=== PATIENT | female | born 1990 | race African-American/Black ===

== ENCOUNTER 2017-11-02 12:17 | Emergency (ER) | payer SELFPAY ==
[~2017-11-02] VITALS: Ht 154.9 cm; Wt 107.6 kg
[~2017-11-02 12:17] MED LIST: BACT800T5 PO; IBUP600T26 PO; PROP80CA PO; TYLE3 PO
[2017-11-02 12:22] VITALS: BP 144/66; PULSE 89; RESP 16; TEMP 99.5; O2SAT 100
--- NOTE | 2017-11-02 13:09 | PD ---
HPI Chief Complaint: Related Problem Time Seen by Provider: 13:02 Travel History International Travel<30 days: No Contact w/Intl Traveler<30days: No Traveled to known affect area: No History of Present Illness HPI 27yo F who is [id number] per LMP of 09/12/17 presents to the ED with c/o vaginal bleeding for 3 days. Said she called her OB Dr. Lucero and had outpatient bHCG taken yesterday and it was 434. Also with some left lower back pain today. Denies any fever, IVDA, fall, focal weakness or numbness. Denies any chest pain, sob, abdominal pain. +Nausea and vomiting. PFSH Past Medical History Anemia: Yes Depression: Yes Diminished Hearing: No Hypertension: Yes Medical other: Yes (PLANTAR FACITIS) Migraines: Yes ?: LMP: 09/12/17 : 1 Para: 1 Past Surgical History Oral Surgery: Yes (wisdoom teeth extraction) Other Surgery: Yes Family History Family Hypercholesterolemia: Yes (PATERNAL GRANDMOTHER) Social History Alcohol Use: Yes (2-3X WEEK) Tobacco Use: No Substance Use: No Allergies-Medications (Allergen,Severity, Reaction): Uncoded Allergies: TRICONAZOLA (Allergy, Severe, Hives, 05/12/14) Reported Meds & Prescriptions Reported Meds & Active Scripts Active No Active Prescriptions or Reported Medications Review of Systems Except as stated in HPI: all other systems reviewed are Neg Physical Exam Narrative GENERAL: 27yo F not in distress. SKIN: Focused skin assessment warm/dry. HEAD: Atraumatic. Normocephalic. CARDIOVASCULAR: Regular rate and rhythm. No murmur appreciated. RESPIRATORY: No accessory muscle use. Clear to auscultation. Breath sounds equal bilaterally. GASTROINTESTINAL: Abdomen soft, non-tender, nondistended. No rebound tenderness or guarding. PELVIC: +Small amount of blood. Cervix is open finger tip. No CMT or adnexal tenderness bilaterally. MUSCULOSKELETAL: No obvious deformities. No clubbing. No cyanosis. No edema. NEUROLOGICAL: Awake and alert. No obvious cranial nerve deficits. Motor grossly within normal limits. Normal speech. PSYCHIATRIC: Appropriate mood and affect; insight and judgment normal. Data Data Last Documented VS Vital Signs Date Time Temp Pulse Resp B/P (MAP) Pulse Ox O2 Delivery O2 Flow Rate FiO2 11/02/17 12:22 99.5 89 16 144/66 (92) 100 Orders Orders Complete Blood Count With Diff (11/02/17 13:05) Basic Metabolic Panel (Bmp) (11/02/17 13:05) Prothrombin Time / Inr (Pt) (11/02/17 13:05) Act Partial Throm Time (Ptt) (11/02/17 13:05) Beta Hcg (Quant/Titer) (11/02/17 13:05) Urinalysis - C+S If Indicated (11/02/17 13:05) Us Pelvis (Ques Pr/Ect)W Trans (11/02/17 ) Ed Urine Pregnancytest Poc (11/02/17 13:39) Gc And Chlamydia Pcr (11/02/17 14:19) Wet Prep Profile (11/02/17 14:19) Labs Laboratory Tests Test 11/02/17 13:20 11/02/17 13:40 11/02/17 14:20 White Blood Count 4.7 TH/MM3 Red Blood Count 4.92 MIL/MM3 Hemoglobin 11.1 GM/DL Hematocrit 34.0 % Mean Corpuscular Volume 69.1 FL Mean Corpuscular Hemoglobin 22.5 PG Mean Corpuscular Hemoglobin Concent 32.5 % Red Cell Distribution Width 14.0 % Platelet Count 225 TH/MM3 Mean Platelet Volume 8.1 FL Neutrophils (%) (Auto) 61.6 % Lymphocytes (%) (Auto) 26.1 % Monocytes (%) (Auto) 8.5 % Eosinophils (%) (Auto) 1.2 % Basophils (%) (Auto) 2.6 % Neutrophils # (Auto) 2.9 TH/MM3 Lymphocytes # (Auto) 1.2 TH/MM3 Monocytes # (Auto) 0.4 TH/MM3 Eosinophils # (Auto) 0.1 TH/MM3 Basophils # (Auto) 0.1 TH/MM3 CBC Comment AUTO DIFF Differential Comment AUTO DIFF CONFIRMED Ovalocytes 2+ Keratocytes OCC Urine Collection Type [id number] Urine Color YELLOW Urine Turbidity CLEAR Urine pH 6.0 Urine Specific [place] LESS/EQUAL 1.005 Urine Protein NEG mg/dL Urine Glucose (UA) NEG mg/dL Urine Ketones NEG mg/dL Urine Occult Blood TRACE Urine Nitrite NEG Urine Bilirubin NEG Urine Urobilinogen 0.2 MG/DL Urine Leukocyte Esterase NEG Urine Squamous Epithelial Cells 0-5 /hpf Urine Bacteria RARE /hpf Microscopic Urinalysis Comment CULT NOT INDICATED Blood Urea Nitrogen 9 MG/DL Creatinine 0.74 MG/DL Random Glucose 84 MG/DL Calcium Level 8.8 MG/DL Sodium Level 141 MEQ/L Potassium Level 4.1 MEQ/L Chloride Level 111 MEQ/L Carbon Dioxide Level 25.3 MEQ/L Anion Gap 5 MEQ/L Estimat Glomerular Filtration Rate 113 ML/MIN Human Chorionic Gonadotropin, Quant 238 MIU/ML Prothrombin Time 10.2 SEC Prothromb Time International Ratio 1.0 RATIO Activated Partial Thromboplast Time 27.1 SEC Clue Cells (Wet Prep) NONE SEEN Vaginal Trichomonas (Wet Prep) NONE SEEN Vaginal Yeast (Wet Prep) NONE SEEN MDM Medical Decision Making Medical Screen Exam Complete: Yes Emergency Medical Condition: Yes Differential Diagnosis Threatened vs. ectopic vs. UTI Narrative Course 27yo F here with vaginal bleeding for 3 days. Labs reviewed, no leukocytosis. H/H 11.1/34.0. bHCG decreasing to 238 today. UA showed rare bacteria. Culture not indicated. However, since pt is , will still treat. Wet prep negative. US transvaginal showed no definite intrauterine . There is a small cystic area in lower uterine segment. Follow up bHCG abd imagining recommended. There is a 1.9cm cystic lesion in right ovary. Left ovary not seen. Pt has decreasing bHCG and vaginal bleeding, likely incomplete . Pt has no abdominal pain. However, will have pt follow up with OBGYN in 2 days for repeat bHCG and imaging. Diagnosis Primary Impression: Vaginal bleeding during Patient Instructions: General Instructions Departure Forms: Tests/Procedures Additional Instructions: Your bHCG today is 238. Please follow up with your OBGYN in 2 days for repeat bHCG and imaging. Return to the ED if symptoms worsen. Med/Other Pt SpecificInfo: Prescription(s) given Scripts Nitrofurantoin Monohydrate Macrocrystals (Macrobid) 100 Mg Cap 100 MG PO BID for Infection for 5 Days, #10 CAP 0 Refills Prov: Ara Silva 11/02/17 Disposition: 01 DISCHARGE HOME Condition: Stable SilvaDeena hwangramírez BURGESS November 02, 2017 13:09
[2017-11-02 13:30] LABS: AUTOMATED NEUTROPHIL # 2.9 TH/MM3 (1.8-7.7); BASOPHIL # 0.1 TH/MM3 (0-0.2); BASOPHIL % 2.6 % (0.0-2.0); EOSINOPHIL # 0.1 TH/MM3 (0-0.4); EOSINOPHIL % 1.2 % (0.0-4.0); HEMOGLOBIN 11.1 GM/DL (11.6-15.3); LYMPH % 26.1 % (9.0-44.0); LYMPHOCYTE # 1.2 TH/MM3 (1.0-4.8); MEAN CELL VOLUME 69.1 FL (80.0-100.0); MEAN CORPUSCULAR HEMOGLOBIN 22.5 PG (27.0-34.0); MEAN CORPUSCULAR HGB CONC 32.5 % (32.0-36.0); MEAN PLATELET VOLUME 8.1 FL (7.0-11.0); MONO % 8.5 % (0.0-8.0); MONOCYTE # 0.4 TH/MM3 (0-0.9); NEUT % 61.6 % (16.0-70.0); PLATELET COUNT 225 TH/MM3 (150-450); RED BLOOD COUNT 4.92 MIL/MM3 (4.00-5.30); WHITE BLOOD COUNT 4.7 TH/MM3 (4.0-11.0)
[2017-11-02 13:40] LABS: BILIRUBIN, URINE NEG (NEG); BLOOD, URINE TRACE (NEG); GLUCOSE,URINE NEG (NEG); KETONE, URINE NEG (NEG); NITRITE,URINE NEG (NEG); URINE COLOR YELLOW (YELLW/STRAW); URINE LEUKOCYTE ESTERASE NEG (NEG)
[2017-11-02 13:42] LABS: BICARBONATE 25.3 MEQ/L (21.0-32.0); CALCIUM 8.8 MG/DL (8.5-10.1)
[2017-11-02 13:46] LABS: CREATININE 0.74 MG/DL (0.50-1.00)
[2017-11-02 13:50] LABS: BACTERIA, URINE RARE /hpf; SQUAMOUS EPITHELIAL CELL URINE 0-5 /hpf (0-5)
[2017-11-02 14:04] LABS: PROTHROMBIN TIME - PATIENT 10.2 SEC (9.8-11.6)
[2017-11-02 14:13] LABS: OVALOCYTES 2+ (NORMAL)
[2017-11-02 14:14] LABS: KERATOCYTES OCC (NORMAL)
--- NOTE | 2017-11-02 14:39 | RADRPT ---
EXAM DATE/TIME: 11/02/2017 13:45 [facility] COMPARISON: No previous studies available for comparison. EXTERNAL COMPARISON : INDICATIONS : Vaginal bleeding with . LAB(S): Beta-hC MEDICAL HISTORY : . SURGICAL HISTORY : Right hand tendon surgery. ENCOUNTER: Initial ACUITY: 1 day PAIN SCORE: 0/10 LOCATION: Bilateral pelvis MEASUREMENTS: UTERUS: 9.2 x 4.2 x 4.4 cm ENDOMETRIAL STRIPE: 10 mm RIGHT OVARY: 4.2 x 2.7 x 2.2 cm LEFT OVARY: not seen FREE FLUID: No CROWN RUMP LENGTH: not seen FHR: not seen FINDINGS: UTERUS: The myometrium has homogeneous echotexture without mass. No definite gestational sac is seen. There is a cystic area within the lower uterine segment measuring 6 x 4 x 2 mm. RIGHT OVARY: Follicles are present as well as a hypoechoic cystic lesion measuring 1.9 cm. No increased peripheral blood flow is present. LEFT OVARY: Not visualized. MISCELLANEOUS: No free fluid. CONCLUSION: 1. No definite intrauterine is identified. There is a small cystic area in the lower uterin e segment measuring 6 mm which potentially could represent a small gestational sac in an abnormally l ow position. However, followup beta-hCG as well as clinical and imaging followup recommended to [facility] evaluate. 2. There is a 1.9 cm cystic lesion in the right ovary. The left ovary is not seen. Jesus Santo MD on November 02, 2017 at 14:33 Board Certified Radiologist. This report was verified electronically.
[2017-11-02] MEDS ORDERED: MACR100C2 PO (14:50)
== END 2017-11-02 15:13 | disposition home or self-care (01) ==
LOC: PHED 12:17
DX: O46.91 Antepartum hemorrhage, unspecified, first trimester (principal); M54.5 Low back pain; O99.011 Anemia complicating pregnancy, first trimester; O16.1 Unspecified maternal hypertension, first trimester; F32.9 Major depressive disorder, single episode, unspecified; Z3A.01 Less than 8 weeks gestation of pregnancy
CPT/HCPCS: 76700; 76817; 80048; 81001; 84702; 84703; 85025; 85610; 85730; 87210; 87491; 87591; 99284

== ENCOUNTER 2017-11-04 13:07 | Emergency (ER) | payer BC, OTHER ==
[~2017-11-04 13:07] MED LIST changes: -BACT800T5 PO; -IBUP600T26 PO; +MACR100C2 PO; -PROP80CA PO; -TYLE3 PO
[2017-11-04 13:08] VITALS: BP 128/89; PULSE 91; RESP 16; TEMP 98.3; O2SAT 100
--- NOTE | 2017-11-04 13:40 | PD ---
HPI Chief Complaint: Security Investigator Problem/Complaint Time Seen by Provider: 13:14 Travel History International Travel<30 days: No Contact w/Intl Traveler<30days: No Traveled to known affect area: No History of Present Illness HPI The patient was seen and examined in the presence of the nurse. This patient was seen here 2 days ago for some mild vaginal bleeding. She had an outpatient beta titer of 434 and her titer 2 days ago was 238. She was advised to get a repeat titer in 2 days which is today. She presents with no pelvic pain and scant vaginal bleeding. She has an appointment with her OB physician in 4 days. Symptom severity is mild. No alleviating factors. No exacerbating factors. Duration 4 days PFSH Past Medical History Anemia: Yes Depression: Yes Diminished Hearing: No Hypertension: Yes Migraines: Yes ?: Not : 1 Para: 1 Past Surgical History Oral Surgery: Yes (wisdoom teeth extraction) Other Surgery: Yes Family History Family Hypercholesterolemia: Yes (PATERNAL GRANDMOTHER) Social History Alcohol Use: Yes (2-3X WEEK) Tobacco Use: No Substance Use: No Allergies-Medications (Allergen,Severity, Reaction): Uncoded Allergies: TRICONAZOLA (Allergy, Severe, Hives, 05/12/14) Reported Meds & Prescriptions Reported Meds & Active Scripts Active Macrobid (Nitrofurantoin Monoh/Nitrofur Macro) 100 Mg Cap 100 Mg PO BID 5 Days Review of Systems General / Constitutional: No: Fever Eyes: No: Visual changes HENT: No: Headaches Cardiovascular: No: Chest Pain or Discomfort Respiratory: No: Shortness of Breath Gastrointestinal: No: Abdominal Pain Genitourinary: Positive: Vaginal Bleeding, No: Dysuria Musculoskeletal: No: Pain Skin: No Rash Neurologic: No: Weakness Psychiatric: No: Depression Endocrine: No: Polydipsia Hematologic/Lymphatic: No: Easy Bruising Physical Exam Narrative GENERAL: Well-nourished, well-developed patient in no apparent distress. SKIN: Focused skin assessment reveals no rash and nodules. Skin is Warm and dry. HEAD: Atraumatic. Normocephalic. EYES: Pupils equal and round. No scleral icterus. No injection or drainage. ENT: No nasal bleeding or discharge. Mucous membranes pink and moist. NECK: Trachea midline. No JVD. CARDIOVASCULAR: Regular rate and rhythm. No murmur appreciated. RESPIRATORY: No accessory muscle use. Clear to auscultation. Breath sounds equal bilaterally. GASTROINTESTINAL: Abdomen soft, non-tender, nondistended. Hepatic and splenic margins not palpable. MUSCULOSKELETAL: No obvious deformities. No clubbing. No cyanosis. No edema. NEUROLOGICAL: Awake and alert. No obvious cranial nerve deficits. Motor grossly within normal limits. Normal speech. PSYCHIATRIC: Appropriate mood and affect; insight and judgment normal. Data Data Last Documented VS Vital Signs Date Time Temp Pulse Resp B/P (MAP) Pulse Ox O2 Delivery O2 Flow Rate FiO2 11/04/17 13:08 98.3 91 16 128/89 (102) 100 Orders Orders Beta Hcg (Quant/Titer) (11/04/17 13:23) Labs Laboratory Tests Test 11/04/17 13:20 Human Chorionic Gonadotropin, Quant 50 MIU/ML MDM Medical Decision Making Medical Screen Exam Complete: Yes Emergency Medical Condition: Yes Medical Record Reviewed: Yes Differential Diagnosis Miscarriage, threatened , ectopic Narrative Course I have reviewed the patient's electronic medical record. Reviewed her labs and ultrasound from 2 days ago Today's beta hCG is 50 Presentation suggest miscarriage. Beta hCG is clearly trending down, likely to 0 No clinical suspicion of ectopic. She has no pain and feels well She does have some bleeding though Discussed ectopic precautions and pelvic rest She has a follow-up with her OB in 4 days. I encouraged her to call their office tomorrow and discuss her symptoms and get any further recommendations. If she worsens she will return Diagnosis Primary Impression: Spontaneous miscarriage Additional Instructions: The patient was advised to follow up with their OB physician and return if they worsen. Utilize ectopic precautions and pelvic rest Med/Other Pt SpecificInfo: Other Disposition: 01 DISCHARGE HOME Condition: Stable Avila Grant MD November 04, 2017 13:40
== END 2017-11-04 14:45 | disposition home or self-care (01) ==
LOC: PHED 13:07
DX: O03.9 Complete or unspecified spontaneous abortion without complication (principal); O16.1 Unspecified maternal hypertension, first trimester
CPT/HCPCS: 84702; 99281